=== PATIENT | female | born 2000 | race Caucasian/White ===

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

== ENCOUNTER 2019-01-08 08:40 | Emergency (ER) | payer OTHER ==
[~2019-01-08] VITALS: Ht 147.3 cm; Wt 50.0 kg
[2019-01-08] MEDS ORDERED: otc prenatal (08:48)
[2019-01-08 10:00] LABS: BASO % 0.5 % (0.0-1.0); EOS # 0.1 10^3/uL (0.0-0.50); EOS % 0.6 % (0.0-3.0); HEMATOCRIT 30.8 % (36.0-47.0); HEMOGLOBIN 9.6 g/dl (12.0-15.5); LYMPH # 1.5 10^3/uL (1.5-6.5); LYMPH % 17.9 % (24.0-44.0); MEAN CORPUSCULAR HEMOGLOBIN 20.1 pg (27.0-33.0); MEAN CORPUSCULAR HGB CONC 31.2 g/dl (32.0-36.5); MEAN CORPUSCULAR VOLUME 64.4 fl (80.0-96.0); MONO # 0.6 10^3/uL (0.0-0.8); MONO % 7.5 % (0.0-5.0); NEUTROPHILS # 6.2 10^3/uL (1.8-7.7); PLATELET COUNT, AUTOMATED 255 10^3/uL (150-450); RED BLOOD COUNT 4.78 10^6/uL (4.00-5.40); WHITE BLOOD COUNT 8.5 10^3/uL (4.0-10.0)
--- NOTE | 2019-01-08 10:23 | REP ---
Clinical: Early with pelvic pain and vaginal bleeding. Technique: Transabdominal first trimester obstetrical ultrasound with color Doppler evaluation. Findings: Ultrasound examination demonstrates a single live intrauterine . [place] rump length of 3.6 cm corresponds to 10 weeks 3 days gestational age with estimated date of delivery 08/03/2019. heart rate equals 175 bpm. No obvious abnormalities appreciated. Small amount of endocervical fluid is nonspecific. Impression: Single live early intrauterine at 10 weeks 3 days gestational age. Complete anatomical assessment should be performed at 19-20 weeks. Electronically Signed by Adrien Milligan MD 01/08/2019 10:15 A
[2019-01-08 11:13] VITALS: BP 100/61
== END 2019-01-08 11:38 | disposition home or self-care (01) ==
LOC: M ED 08:40
DX: O20.9 Hemorrhage in early pregnancy, unspecified (principal); Z3A.10 10 weeks gestation of pregnancy